=== PATIENT | female | born 1960 | race Caucasian/White ===

== ENCOUNTER 2021-02-23 00:29 | Day surgery (SDC) | payer OTHER, SELFPAY ==
[2021-02-04 14:03] VITALS: BMI 24.5
[2021-02-23] MEDS: LACTATED RINGERS 1,000 ML 150 ML IV CONT (06:31)
[2021-02-23] MEDS: GENTAMICIN 80MG/SOD CHL 50 ML 80 MG/50 ML BAG 100 MG IVPB (06:32)
[2021-02-23 06:34] VITALS: BP 106/61; PULSE 71; RESP 18; TEMP 36.1; O2SAT 98; BMI 24.3
[2021-02-23] MEDS: AMPICILLIN 2 GM/NS 100 ML 2 GM/100 ML BAG IVPB (06:57)
--- NOTE | 2021-02-23 07:07 | PM.HPGS ---
History of Present Illness History of Present Illness Consent: Risks, benefits, and alternatives have been discussed and questions answered. Patient agrees to proceed with procedure. Chief complaint: sigmoid diverticulitis Narrative: Risa Taylor is a 60 year old female who recently had an attack of acute diverticulitis. CT scan showed thickening of the sigmoid and distal descending colon consistent with that diagnosis. She is referred for colonoscopy to verify that the diagnosis and rule out other pathology. She has had a polyp removed for colon several years ago Review of Systems Review of Systems: All systems reviewed & are unremarkable except as noted in HPI and below PMFSH Social History Social History Smoking packs per day: 1 Smoking cigarettes per day: 20.0 Years smoked: 30 Smoking pack-years: 30.00 Smoking status: Former smoker Tobacco type: cigarettes Substance use type: does not use Living arrangements: with family Gender identity (if verbalized by the patient): Female Meds Home Medications and Allergies Home Medications Medication Instructions Recorded Confirmed Type Adult Probiotic 02/04/21 History Co Q-10 02/04/21 History aspirin [Adult Low Dose Aspirin] 81 mg PO DAILY 02/04/21 02/04/21 History azelastine-fluticasone [Dymista] INTRANASAL 02/04/21 History calcium polycarbophil [FiberCon] mg 02/04/21 History carvedilol 3.125 mg PO DAILY 02/04/21 02/23/21 History cetirizine 10 mg PO DAILY 02/04/21 02/04/21 History magnesium carbonate 02/04/21 02/04/21 History montelukast 10 mg PO DAILY 02/04/21 02/04/21 History pantoprazole 40 mg PO DAILY 02/04/21 02/04/21 History simvastatin 10 mg PO DAILY 02/04/21 02/04/21 History tramadol 50 mg PO DAILY 02/04/21 02/04/21 History warfarin 5.5 mg PO DAILY 02/04/21 02/23/21 History Allergies Allergy/AdvReac Type Severity Reaction Status Date / Time iohexol Allergy Hives Verified 02/23/21 06:33 [From contrast - CT, X-RAY] Sulfa (Sulfonamide Allergy Itching Verified 02/23/21 06:33 Antibiotics) Vital Signs Vital Signs - 24 hr 02/23/21 06:34 Temperature 36.1 C L Pulse Rate 71 Respiratory Rate 18 Blood Pressure 106/61 Pulse Oximetry 98 Exam Resp: Auscultation: clear to auscultation bilaterally Cardio: Rate: regular rate Rhythm: regular rhythm GI: GI Palp: Yes Soft to palpation and No Tenderness to palpation present (GI) Assessment and Plan Assessment and plan (1) Diverticulitis: Code(s): K57.92 - Diverticulitis of intestine, part unspecified, without perforation or abscess without bleeding Status: Acute Assessment and Plan: Colonoscopy with possible biopsy or polypectomy or cautery or injection of substances.
--- NOTE | 2021-02-23 07:18 | WPDANESEPPF ---
Anes - Initial Pre Proc Eval Procedure: Operation Date: 02/23/21 07:30 Proposed Procedures p Colonoscopy - Andrew Thompson MD Date/Time: 02/23/21 07:18 Surgeon: Andrew Thompson MD Pre Op Diagnosis: sigmoid diverticulitis Patient Data Age: 60 Gender: F Height: 1.7 m Weight: 70.5 kg Last Vital Signs Temp 97 F L 02/23/21 06:34 Pulse 71 02/23/21 06:34 Resp 18 02/23/21 06:34 BP 106/61 02/23/21 06:34 Pulse Ox 98 02/23/21 06:34 Allergies Allergy/AdvReac Type Severity Reaction Status Date / Time iohexol Allergy Hives Verified 02/23/21 06:33 [From contrast - CT, X-RAY] Sulfa (Sulfonamide Allergy Itching Verified 02/23/21 06:33 Antibiotics) Home Medications Medication Instructions Recorded Confirmed Type Adult Probiotic 02/04/21 History Co Q-10 02/04/21 History aspirin [Adult Low Dose Aspirin] 81 mg PO DAILY 02/04/21 02/04/21 History azelastine-fluticasone [Dymista] INTRANASAL 02/04/21 History calcium polycarbophil [FiberCon] mg 02/04/21 History carvedilol 3.125 mg PO DAILY 02/04/21 02/23/21 History cetirizine 10 mg PO DAILY 02/04/21 02/04/21 History magnesium carbonate 02/04/21 02/04/21 History montelukast 10 mg PO DAILY 02/04/21 02/04/21 History pantoprazole 40 mg PO DAILY 02/04/21 02/04/21 History simvastatin 10 mg PO DAILY 02/04/21 02/04/21 History tramadol 50 mg PO DAILY 02/04/21 02/04/21 History warfarin 5.5 mg PO DAILY 02/04/21 02/23/21 History Patient hx anesthesia problems: none Family hx anesthesia problems: none PMFSH Past Medical History Medical History (Updated 02/23/21 @ 07:18 by Taurus Aden MD) Arthritis GERD (gastroesophageal reflux disease) Hyperlipidemia Social History Social History Smoking packs per day: 1 Smoking cigarettes per day: 20.0 Years smoked: 30 Smoking pack-years: 30.00 Smoking status: Former smoker Tobacco type: cigarettes Substance use type: does not use Living arrangements: with family Gender identity (if verbalized by the patient): Female Anes - Eval Final PreProcedure Day of Procedure 02/23/21 07:18 Patient weight: obese Heart: regular rate and rhythm Lungs: clear to auscultation Airway: Mallampati scale class II Neurological: alert and oriented Last oral intake: >/= 8 hours ASA classification: III Emergent: no Anesthetic plan: proceed Anesthesia type and monitoring: general GIVS and standard monitoring Informed Consent: The patient's anesthetic plan and its attendant risks and benefits were discussed with the patient/family/POA. Questions were solicited and answers provided to the satisfaction of the patient/family/POA.
[2021-02-23 07:41] VITALS: BP 107/47; PULSE 76; RESP 21; O2SAT 95
[2021-02-23 07:51] VITALS: BP 101/56; PULSE 72; RESP 19; O2SAT 94
[2021-02-23 08:01] VITALS: BP 93/65; PULSE 69; RESP 19; O2SAT 96
== END 2021-02-23 08:09 | disposition home or self-care (01) ==
PROVIDERS: PCP Internal Medicine; Visit Provider Internal Medicine Gastroenterology
PROC: 0DJD8ZZ Inspection of Lower Intestinal Tract, Via Natural or Artificial Opening Endoscopic (ICD-10-PCS; CPT 45378; principal; 2021-02-23 07:30)
DX: Z09 Encounter for follow-up examination after completed treatment for conditions other than malignant neoplasm (principal); K57.30 Diverticulosis of large intestine without perforation or abscess without bleeding; K64.8 Other hemorrhoids; Z87.19 Personal history of other diseases of the digestive system; I10 Essential (primary) hypertension; K21.9 Gastro-esophageal reflux disease without esophagitis; Z79.01 Long term (current) use of anticoagulants; Z87.891 Personal history of nicotine dependence
CPT/HCPCS: 45378; J0290; J1580; J2704; J7120

== ENCOUNTER 2021-03-03 10:10 | Outpatient (CLI) | payer OTHER, SELFPAY ==
[2021-03-03 10:41] LABS: INR 1.7; Prothrombin Time 17.7 Seconds (9.50-12.10)
== END 2021-03-03 10:11 | disposition home or self-care (01) ==
LOC: CHSLAB 10:13
PROVIDERS: PCP Internal Medicine; Visit Provider Internal Medicine
DX: Z79.01 Long term (current) use of anticoagulants (principal)
CPT/HCPCS: 36415; 85610

== ENCOUNTER 2021-03-16 08:19 | Outpatient (RCR) | payer OTHER, SELFPAY ==
[2021-01-07 10:38] LABS: INR 1.8; Prothrombin Time 18.6 Seconds (9.50-12.10)
[2021-01-24 09:19] LABS: INR 2.2; Prothrombin Time 23.1 Seconds (9.50-12.10)
[2021-03-16 08:50] LABS: INR 2.5; Prothrombin Time 25.6 Seconds (9.50-12.10)
== END 2021-04-07 23:59 | disposition home or self-care (01) ==
LOC: CHSLAB 08:19
PROVIDERS: PCP Internal Medicine; Visit Provider Internal Medicine
DX: Z79.01 Long term (current) use of anticoagulants (principal)
CPT/HCPCS: 36415; 85610

== ENCOUNTER 2021-07-01 08:48 | Outpatient (RCR) | payer OTHER, SELFPAY ==
[2021-04-15 10:03] LABS: INR 2.6; Prothrombin Time 26.8 Seconds (9.50-12.10)
[2021-05-16 08:58] LABS: Prothrombin Time 20.3 Seconds (9.50-12.10)
[2021-05-31 08:54] LABS: INR 2.6; Prothrombin Time 26.1 Seconds (9.50-12.10)
[2021-07-01 09:10] LABS: INR 3.3
== END 2021-07-14 23:59 | disposition home or self-care (01) ==
LOC: CHSLAB 08:48
PROVIDERS: PCP Internal Medicine; Visit Provider Internal Medicine
DX: Z79.01 Long term (current) use of anticoagulants (principal)
CPT/HCPCS: 36415; 85610

== ENCOUNTER 2021-09-02 08:41 | Outpatient (CLI) | payer OTHER, SELFPAY ==
[2021-09-02 09:03] LABS: Add Urine Microscopic? YES; Appearance Urine Clear (Clear); Basophils Absolute Auto 0.06 K/mm3 (0.00-0.10); Basophils Percent Auto 0.8 % (0.0-1.0); Bilirubin Urine Negative (Negative); Blood Urine Negative (Negative); Color Urine Yellow (Yellow); Eosinophils Absolute Auto 0.24 K/mm3 (0.02-0.50); Eosinophils Percent Auto 3.1 % (1.0-6.0); Glucose Urine UA Negative (Negative); Hematocrit 39.7 % (35.0-49.0); Hemoglobin 12.9 g/dL (12.0-15.0); Immature Granulocyte Absolute 0.07 K/mm3 (0.00-0.00); Immature Granulocyte Percent A 0.9 % (0.0-0.0); Ketones Urine Negative (Negative); Leukocyte Esterase Ur Trace (Negative); Lymphocytes Absolute Auto 2.07 K/mm3 (1.10-4.50); Lymphocytes Percent Auto 26.7 % (18.0-42.0); Mean Corpuscular HGB Conc 32.5 g/dL (32.0-36.0); Mean Corpuscular Hemoglobin 30.1 pg (27.0-31.0); Mean Corpuscular Volume 92.5 fL (78.0-102.0); Mean Platelet Volume 10.3 fl (9.2-11.8); Monocytes Absolute Auto 0.63 K/mm3 (0.10-0.90); Monocytes Percent Auto 8.1 % (2.0-11.0); Neutrophils Absolute Auto 4.7 K/mm3 (1.7-7.2); Neutrophils Percent Auto 60.4 % (50.0-70.0); Nitrate Urine Negative (Negative); Platelet Count Result 335 K/mm3 (150-420); Protein Urine Negative (Negative); Red Blood Count 4.29 M/mm3 (4.20-5.40); Red Cell Distribution Width 14.8 % (11.6-14.4); Specific Grav Ur 1.025 (1.010-1.020); Urobilinogen Urine 0.2 mg/dL (0.2-1.0); White Blood Count 7.7 K/mm3 (4.8-10.8); pH Urine 5.5 (5.0-8.0)
[2021-09-02 09:16] LABS: Prothrombin Time 20.3 Seconds (9.50-12.10)
[2021-09-02 09:22] LABS: Bacteria Urine Trace /hpf; RBC Urine None seen /hpf (0-2); Squamous Epithelial Cell Urine Moderate /hpf (Few); WBC Urine 0-3 /hpf (0-3)
[2021-09-02 09:50] LABS: Alanine Aminotransferase 18 U/L (14-59); Albumin Level 3.9 g/dL (3.4-5.0); Alkaline Phosphatase 80 U/L (46-116); Anion Gap 9 mmol/L (8-16); Aspartate Amino Transferase 13 U/L (15-37); Bilirubin,Total 0.5 mg/dL (0.00-1.00); Blood Urea Nitrogen 14 mg/dL (7-18); Calcium 9.1 mg/dL (8.5-10.1); Carbon Dioxide 28 mmol/L (21-32); Chloride 102 mmol/L (98-108); Cholesterol 190 mg/dL (0-200); Estimated Glomerular Filt Rate > 60; Glucose 107 mg/dL (70-99); HDL Direct 46 mg/dL (40-60); LDL Cholesterol Calculated 84 mg/dL (<130); Osmolality Calculated 288 mOsm/kg (285-295); Potassium 4.7 mmol/L (3.5-5.1); Sodium 139 mmol/L (136-145); Total Protein 7.7 g/dL (6.4-8.2); Triglycerides 302 mg/dL (0-150)
[2021-09-02 15:15] LABS: Hemoglobin A1C 5.8 % (<5.7)
== END 2021-09-02 08:42 | disposition home or self-care (01) ==
LOC: CHSLAB 08:43
PROVIDERS: PCP Internal Medicine; Visit Provider Internal Medicine
DX: E78.5 Hyperlipidemia, unspecified (principal); Z79.01 Long term (current) use of anticoagulants; Z95.2 Presence of prosthetic heart valve; R73.9 Hyperglycemia, unspecified
CPT/HCPCS: 36415; 80053; 80061; 81001; 83036; 85025; 85610

== ENCOUNTER 2021-10-10 08:45 | Outpatient (RCR) | payer OTHER, SELFPAY ==
[2021-08-01 10:04] LABS: INR 2.9; Prothrombin Time 29.3 Seconds (9.50-12.10)
[2021-10-10 09:35] LABS: INR 2.2; Prothrombin Time 22.6 Seconds (9.50-12.10)
== END 2021-10-30 23:59 | disposition home or self-care (01) ==
LOC: CHSLAB 08:45
PROVIDERS: PCP Internal Medicine; Visit Provider Internal Medicine
DX: Z79.01 Long term (current) use of anticoagulants (principal)
CPT/HCPCS: 36415; 85610

== ENCOUNTER 2022-01-06 08:27 | Outpatient (RCR) | payer OTHER, SELFPAY ==
[2021-11-07 09:51] LABS: INR 1.9; Prothrombin Time 19.3 Seconds (9.50-12.10)
[2022-01-06 09:07] LABS: INR 2.5; Prothrombin Time 25.9 Seconds (9.50-12.10)
== END 2022-02-05 23:59 | disposition home or self-care (01) ==
LOC: CHSLAB 08:27
PROVIDERS: PCP Internal Medicine; Visit Provider Internal Medicine
DX: Z79.01 Long term (current) use of anticoagulants (principal)
CPT/HCPCS: 36415; 85610

== ENCOUNTER 2022-02-01 16:54 | Outpatient (CLI) | payer OTHER, SELFPAY ==
--- NOTE | ~2022-02-01 | XR_ITS ---
EXAM: XR lumbar spine 2-3V DATE: 02/01/2022 17:46 HISTORY: posterior RT hip/low back pain . COMPARISON: None available. FINDINGS: 5 nonrib-bearing lumbar-type vertebral bodies. Mild scoliosis. Pedicles intact. Normal bonifacio tebral body alignment. Vertebral body heights preserved. Mild concave osteoporotic type endplate defo rmities. Multilevel disc space narrowing and marginal osteophytosis, severe at L2-3 and L3-4. Mild mu ltilevel facet sclerosis. No fracture or dislocation. IMPRESSION: Severe degenerative disc disease at L2-3 and L3-4. Reviewed, dictated and finalized at location K.
--- NOTE | ~2022-02-01 | XR_ITS ---
EXAM: XR hip RT min 2V DATE: 02/01/2022 17:46 HISTORY: posterior RT hip/low back pain x 1 wk . COMPARISON: None available. FINDINGS: Decreased mineralization. No fracture or dislocation. No lytic or blastic lesion. Mild rig ht hip superior joint space narrowing. No erosion or periosteal change. Punctate calcific densities o bonifacio the central pelvis, may represent involuted fibroid calcifications versus artifact. IMPRESSION: Mild right hip osteoarthritis. Reviewed, dictated and finalized at location K.
== END 2022-02-01 16:55 | disposition home or self-care (01) ==
LOC: CHSIMG 16:56
PROVIDERS: PCP Internal Medicine; Visit Provider Internal Medicine
DX: M25.551 Pain in right hip (principal)
CPT/HCPCS: 72100; 73502

== ENCOUNTER 2022-02-08 09:40 | Outpatient (CLI) | payer OTHER, SELFPAY ==
[2022-02-08 10:03] LABS: Appearance Urine Clear (Clear); Basophils Absolute Auto 0.05 K/mm3 (0.00-0.10); Basophils Percent Auto 0.6 % (0.0-1.0); Bilirubin Urine Negative (Negative); Color Urine Light Yellow (Yellow); Eosinophils Absolute Auto 0.18 K/mm3 (0.02-0.50); Eosinophils Percent Auto 2.1 % (1.0-6.0); Glucose Urine UA Negative (Negative); Hematocrit 41.2 % (35.0-49.0); Hemoglobin 13.5 g/dL (12.0-15.0); Immature Granulocyte Absolute 0.18 K/mm3 (0.00-0.00); Immature Granulocyte Percent A 2.1 % (0.0-0.0); Ketones Urine Negative (Negative); Leukocyte Esterase Ur Negative (Negative); Lymphocytes Absolute Auto 3.15 K/mm3 (1.10-4.50); Mean Corpuscular HGB Conc 32.8 g/dL (32.0-36.0); Mean Corpuscular Hemoglobin 29.5 pg (27.0-31.0); Monocytes Absolute Auto 0.77 K/mm3 (0.10-0.90); Monocytes Percent Auto 8.8 % (2.0-11.0); Neutrophils Absolute Auto 4.4 K/mm3 (1.7-7.2); Neutrophils Percent Auto 50.4 % (50.0-70.0); Nitrate Urine Negative (Negative); Platelet Count Result 279 K/mm3 (150-420); Protein Urine Negative (Negative); Red Blood Count 4.58 M/mm3 (4.20-5.40); Red Cell Distribution Width 14.6 % (11.6-14.4); Specific Grav Ur <= 1.005 (1.010-1.020); Urobilinogen Urine 0.2 mg/dL (0.2-1.0); White Blood Count 8.8 K/mm3 (4.8-10.8)
[2022-02-08 10:07] LABS: Add Urine Microscopic? YES; Bacteria Urine Trace /hpf; Blood Urine Trace-Intact (Negative); RBC Urine 0-2 /hpf (0-2); Renal Epithelial Cells Urine Few /hpf; Squamous Epithelial Cell Urine Few /hpf (Few); WBC Urine None seen /hpf (0-3)
[2022-02-08 10:12] LABS: Hemoglobin A1C 5.9 % (<5.7)
[2022-02-08 10:18] LABS: INR 2.5; Prothrombin Time 25.8 Seconds (9.50-12.10)
[2022-02-08 10:42] LABS: Alanine Aminotransferase 24 U/L (14-59); Albumin Level 3.7 g/dL (3.4-5.0); Alkaline Phosphatase 89 U/L (46-116); Anion Gap 7 mmol/L (8-16); Aspartate Amino Transferase 13 U/L (15-37); Bilirubin,Total 0.5 mg/dL (0.00-1.00); Blood Urea Nitrogen 19 mg/dL (7-18); Calcium 8.7 mg/dL (8.5-10.1); Carbon Dioxide 29 mmol/L (21-32); Chloride 102 mmol/L (98-108); Cholesterol 228 mg/dL (0-200); Estimated Glomerular Filt Rate 56; Glucose 87 mg/dL (70-99); HDL Direct 53 mg/dL (40-60); LDL Cholesterol Calculated 94 mg/dL (<130); Osmolality Calculated 287 mOsm/kg (285-295); Potassium 4.2 mmol/L (3.5-5.1); Sodium 138 mmol/L (136-145); Thyroid Stimulating Hormone 4.74 uIU/mL (0.36-3.74); Total Protein 7.8 g/dL (6.4-8.2); Triglycerides 406 mg/dL (0-150)
[2022-02-08 10:50] LABS: LDL Cholesterol Direct 101 mg/dL (0-130)
== END 2022-02-08 09:41 | disposition home or self-care (01) ==
LOC: CHSLAB 09:49
PROVIDERS: PCP Internal Medicine; Visit Provider Internal Medicine
DX: E78.5 Hyperlipidemia, unspecified (principal); Z79.01 Long term (current) use of anticoagulants; R73.09 Other abnormal glucose
CPT/HCPCS: 36415; 80053; 80061; 81001; 83036; 83721; 84443; 85025; 85610

== ENCOUNTER 2022-06-02 08:34 | Outpatient (RCR) | payer OTHER, SELFPAY ==
[2022-03-10 08:37] LABS: INR 1.7; Prothrombin Time 18.3 Seconds (9.50-12.10)
[2022-03-24 08:27] LABS: INR 1.4; Prothrombin Time 14.8 Seconds (9.50-12.10)
[2022-03-28 08:19] LABS: INR 1.6
[2022-04-05 11:55] LABS: INR 2.3; Prothrombin Time 23.6 Seconds (9.50-12.10)
[2022-04-12 10:02] LABS: INR 2.8; Prothrombin Time 27.8 Seconds (9.50-12.10)
[2022-04-21 09:23] LABS: INR 2.9; Prothrombin Time 29.2 Seconds (9.50-12.10)
[2022-05-05 08:21] LABS: INR 2.9; Prothrombin Time 29.1 Seconds (9.50-12.10)
[2022-06-02 08:57] LABS: INR 3.8
== END 2022-06-08 23:59 | disposition home or self-care (01) ==
LOC: CHSLAB 08:34
PROVIDERS: PCP Internal Medicine; Visit Provider Internal Medicine
DX: Z79.01 Long term (current) use of anticoagulants (principal)
CPT/HCPCS: 36415; 85610

== ENCOUNTER 2022-08-15 08:15 | Outpatient (RCR) | payer OTHER, SELFPAY ==
[2022-06-16 09:43] LABS: INR 2.1; Prothrombin Time 21.4 Seconds (9.50-12.10)
[2022-06-30 08:39] LABS: INR 2.5; Prothrombin Time 25.6 Seconds (9.50-12.10)
[2022-07-31 08:56] LABS: INR 8.9
[2022-08-07 08:15] LABS: INR 4.2; Prothrombin Time 40.8 Seconds (9.50-12.10)
[2022-08-15 08:39] LABS: INR 3.3; Prothrombin Time 33.1 Seconds (9.50-12.10)
== END 2022-09-14 23:59 | disposition home or self-care (01) ==
LOC: CHSLAB 08:15
PROVIDERS: PCP Internal Medicine; Visit Provider Internal Medicine
DX: Z51.11 Encounter for antineoplastic chemotherapy (principal); Z79.01 Long term (current) use of anticoagulants
CPT/HCPCS: 36415; 85610

== ENCOUNTER 2022-10-16 08:11 | Outpatient (CLI) | payer OTHER, SELFPAY ==
[2022-10-16 08:23] LABS: Basophils Absolute Auto 0.03 K/mm3 (0.00-0.10); Basophils Percent Auto 0.4 % (0.0-1.0); Eosinophils Absolute Auto 0.27 K/mm3 (0.02-0.50); Eosinophils Percent Auto 3.7 % (1.0-6.0); Hemoglobin 12.3 g/dL (12.0-15.0); Immature Granulocyte Absolute 0.03 K/mm3 (0.00-0.00); Immature Granulocyte Percent A 0.4 % (0.0-0.0); Lymphocytes Percent Auto 23.1 % (18.0-42.0); Mean Corpuscular HGB Conc 33.2 g/dL (32.0-36.0); Mean Corpuscular Hemoglobin 29.3 pg (27.0-31.0); Mean Corpuscular Volume 88.1 fL (78.0-102.0); Mean Platelet Volume 10.3 fl (9.2-11.8); Monocytes Absolute Auto 0.61 K/mm3 (0.10-0.90); Monocytes Percent Auto 8.3 % (2.0-11.0); Neutrophils Absolute Auto 4.7 K/mm3 (1.7-7.2); Neutrophils Percent Auto 64.1 % (50.0-70.0); Platelet Count Result 261 K/mm3 (150-420); Red Cell Distribution Width 13.9 % (11.6-14.4); White Blood Count 7.4 K/mm3 (4.8-10.8)
[2022-10-16 08:49] LABS: INR 2.1; Prothrombin Time 21.3 Seconds (9.50-12.10)
[2022-10-16 08:54] LABS: Add Urine Microscopic? YES; Appearance Urine Clear (Clear); Bilirubin Urine Negative (Negative); Blood Urine Trace-Intact (Negative); Color Urine Yellow (Yellow); Glucose Urine UA Negative (Negative); Ketones Urine Negative (Negative); Leukocyte Esterase Ur Negative (Negative); Nitrate Urine Negative (Negative); Protein Urine Negative (Negative); Urobilinogen Urine 0.2 mg/dL (0.2-1.0)
[2022-10-16 08:58] LABS: Bacteria Urine 1+ /hpf; RBC Urine 0-2 /hpf (0-2); Squamous Epithelial Cell Urine Moderate /hpf (Few); WBC Urine None seen /hpf (0-3)
[2022-10-16 09:03] LABS: Alanine Aminotransferase 19 U/L (14-59); Albumin Level 3.6 g/dL (3.4-5.0); Alkaline Phosphatase 82 U/L (46-116); Anion Gap 10 mmol/L (8-16); Aspartate Amino Transferase 18 U/L (15-37); Bilirubin,Total 0.4 mg/dL (0.00-1.00); Blood Urea Nitrogen 12 mg/dL (7-18); Calcium 9.2 mg/dL (8.5-10.1); Carbon Dioxide 28 mmol/L (21-32); Chloride 103 mmol/L (98-108); Cholesterol 186 mg/dL (0-200); Estimated Glomerular Filt Rate > 60; Glucose 115 mg/dL (70-99); HDL Direct 38 mg/dL (40-60); LDL Cholesterol Calculated 80 mg/dL (<130); Osmolality Calculated 292 mOsm/kg (285-295); Potassium 4.4 mmol/L (3.5-5.1); Sodium 141 mmol/L (136-145); Total Protein 7.3 g/dL (6.4-8.2); Triglycerides 342 mg/dL (0-150)
[2022-10-16 13:32] LABS: Hemoglobin A1C 5.9 % (<5.7)
== END 2022-10-16 08:12 | disposition home or self-care (01) ==
LOC: CHSLAB 08:14
PROVIDERS: PCP Internal Medicine; Visit Provider Internal Medicine
DX: E78.5 Hyperlipidemia, unspecified (principal); Z79.01 Long term (current) use of anticoagulants
CPT/HCPCS: 36415; 80053; 80061; 81001; 83036; 85025; 85610

== ENCOUNTER 2022-12-13 07:44 | Outpatient (RCR) | payer OTHER, SELFPAY ==
[2022-09-15 10:23] LABS: INR 3.4
[2022-11-13 08:46] LABS: INR 2.2; Prothrombin Time 22.8 Seconds (9.50-12.10)
[2022-12-13 08:08] LABS: Prothrombin Time 30.5 Seconds (9.50-12.10)
== END 2022-12-14 23:59 | disposition home or self-care (01) ==
LOC: CHSLAB 07:44
PROVIDERS: PCP Internal Medicine; Visit Provider Internal Medicine
DX: Z51.81 Encounter for therapeutic drug level monitoring (principal); Z79.01 Long term (current) use of anticoagulants
CPT/HCPCS: 36415; 85610

== ENCOUNTER 2023-04-12 08:37 | Outpatient (RCR) | payer OTHER, SELFPAY ==
[2023-01-12 11:10] LABS: INR 2.6; Prothrombin Time 26.9 Seconds (9.50-12.10)
[2023-01-23 08:39] LABS: INR 3.1; Prothrombin Time 31.3 Seconds (9.50-12.10)
[2023-02-23 08:18] LABS: INR 2.3; Prothrombin Time 23.4 Seconds (9.50-12.10)
[2023-03-28 11:06] LABS: INR 2.1; Prothrombin Time 21.9 Seconds (9.50-12.10)
[2023-04-12 09:20] LABS: INR 4.1; Prothrombin Time 40.7 Seconds (9.50-12.10)
== END 2023-04-12 23:59 | disposition home or self-care (01) ==
LOC: CHSLAB 08:37
PROVIDERS: PCP Internal Medicine; Visit Provider Internal Medicine
DX: Z51.81 Encounter for therapeutic drug level monitoring (principal); Z79.01 Long term (current) use of anticoagulants
CPT/HCPCS: 36415; 85610

== ENCOUNTER 2023-06-11 08:31 | Outpatient (CLI) | payer OTHER, SELFPAY ==
[2023-06-11 08:46] LABS: Appearance Urine Clear (Clear); Basophils Absolute Auto 0.06 K/mm3 (0.00-0.10); Basophils Percent Auto 0.8 % (0.0-1.0); Bilirubin Urine Negative (Negative); Blood Urine Trace-Intact (Negative); Color Urine Yellow (Yellow); Eosinophils Absolute Auto 0.28 K/mm3 (0.02-0.50); Eosinophils Percent Auto 3.9 % (1.0-6.0); Glucose Urine UA Negative (Negative); Hemoglobin 12.6 g/dL (12.0-15.0); Immature Granulocyte Absolute 0.04 K/mm3 (0.00-0.00); Immature Granulocyte Percent A 0.6 % (0.0-0.0); Ketones Urine Negative (Negative); Leukocyte Esterase Ur Negative LEU/UL (Negative); Lymphocytes Absolute Auto 1.93 K/mm3 (1.10-4.50); Lymphocytes Percent Auto 26.8 % (18.0-42.0); Mean Corpuscular HGB Conc 32.3 g/dL (32.0-36.0); Mean Corpuscular Volume 89.7 fL (78.0-102.0); Monocytes Percent Auto 8.3 % (2.0-11.0); Neutrophils Absolute Auto 4.3 K/mm3 (1.7-7.2); Neutrophils Percent Auto 59.6 % (50.0-70.0); Nitrate Urine Negative (Negative); Platelet Count Result 236 K/mm3 (150-420); Protein Urine Negative (Negative); Red Blood Count 4.35 M/mm3 (4.20-5.40); Red Cell Distribution Width 14.7 % (11.6-14.4); Urobilinogen Urine 0.2 mg/dL (0.2-1.0); White Blood Count 7.2 K/mm3 (4.8-10.8); pH Urine 6.5 (5.0-8.0)
[2023-06-11 08:59] LABS: Add Urine Microscopic? YES; Bacteria Urine 3+ /hpf; RBC Urine 0-2 /hpf (0-2); Squamous Epithelial Cell Urine Few /hpf (Few); WBC Urine 0-3 /hpf (0-3)
[2023-06-11 09:03] LABS: INR 2.7; Prothrombin Time 27.9 Seconds (9.50-12.10)
[2023-06-11 10:01] LABS: Alanine Aminotransferase 22 U/L (14-59); Albumin Level 3.6 g/dL (3.4-5.0); Alkaline Phosphatase 84 U/L (46-116); Anion Gap 8 mmol/L (8-16); Aspartate Amino Transferase 15 U/L (15-37); Bilirubin,Total 0.6 mg/dL (0.00-1.00); Blood Urea Nitrogen 11 mg/dL (7-18); Carbon Dioxide 28 mmol/L (21-32); Chloride 104 mmol/L (98-108); Cholesterol 176 mg/dL (0-200); Estimated Glomerular Filt Rate > 60; Free T4 Free Thyroxine 0.83 ng/dL (0.76-1.46); Glucose 98 mg/dL (70-99); HDL Direct 43 mg/dL (40-60); LDL Cholesterol Calculated 77 mg/dL (<130); Osmolality Calculated 289 mOsm/kg (285-295); Potassium 4.6 mmol/L (3.5-5.1); Sodium 140 mmol/L (136-145); Thyroid Stimulating Hormone 4.22 uIU/mL (0.36-3.74); Total Protein 7.4 g/dL (6.4-8.2); Triglycerides 282 mg/dL (0-150)
== END 2023-06-11 08:32 | disposition home or self-care (01) ==
LOC: CHSLAB 08:33
PROVIDERS: PCP Internal Medicine; Visit Provider Nurse Practitioner Family
DX: Z00.00 Encounter for general adult medical examination without abnormal findings (principal); E78.5 Hyperlipidemia, unspecified; R31.9 Hematuria, unspecified; G47.9 Sleep disorder, unspecified; R63.5 Abnormal weight gain
CPT/HCPCS: 36415; 80053; 80061; 81001; 84439; 84443; 85025; 85610

== ENCOUNTER 2023-07-11 08:22 | Outpatient (RCR) | payer OTHER, SELFPAY ==
[2023-04-19 08:58] LABS: INR 4.3; Prothrombin Time 42.5 Seconds (9.50-12.10)
[2023-04-26 14:22] LABS: INR 3.2; Prothrombin Time 32.2 Seconds (9.50-12.10)
[2023-05-10 09:10] LABS: Prothrombin Time 30.3 Seconds (9.50-12.10)
[2023-07-11 09:16] LABS: INR 2.6; Prothrombin Time 26.8 Seconds (9.50-12.10)
== END 2023-07-18 23:59 | disposition home or self-care (01) ==
LOC: CHSLAB 08:22
PROVIDERS: PCP Internal Medicine; Visit Provider Internal Medicine
DX: Z51.81 Encounter for therapeutic drug level monitoring (principal); Z79.01 Long term (current) use of anticoagulants
CPT/HCPCS: 36415; 85610

== ENCOUNTER 2023-10-12 08:54 | Outpatient (RCR) | payer OTHER, SELFPAY ==
[2023-08-10 08:34] LABS: INR 3.2
[2023-09-12 09:01] LABS: INR 2.4; Prothrombin Time 25.1 Seconds (9.50-12.10)
[2023-10-12 09:26] LABS: INR 3.4; Prothrombin Time 33.7 Seconds (9.50-12.10)
== END 2023-11-08 23:59 | disposition home or self-care (01) ==
LOC: CHSLAB 08:54
PROVIDERS: PCP Internal Medicine; Visit Provider Internal Medicine
DX: Z51.81 Encounter for therapeutic drug level monitoring (principal); Z79.01 Long term (current) use of anticoagulants
CPT/HCPCS: 36415; 85610

== ENCOUNTER 2024-01-24 08:41 | Outpatient (RCR) | payer MEDICARE, OTHER, SELFPAY ==
[2023-11-09 09:56] LABS: INR 2.9
[2023-12-11 08:47] LABS: INR 2.4; Prothrombin Time 24.6 Seconds (9.50-12.1)
[2024-01-10 08:44] LABS: INR 1.8; Prothrombin Time 19.2 Seconds (9.50-12.1)
[2024-01-24 09:07] LABS: Prothrombin Time 20.4 Seconds (9.50-12.1)
== END 2024-02-07 23:59 | disposition home or self-care (01) ==
LOC: CHSLAB 08:41
PROVIDERS: PCP Internal Medicine; Visit Provider Internal Medicine
DX: Z51.81 Encounter for therapeutic drug level monitoring (principal); Z79.01 Long term (current) use of anticoagulants
CPT/HCPCS: 36415; 85610

== ENCOUNTER 2024-02-22 08:16 | Outpatient (CLI) | payer MEDICARE, SELFPAY ==
[2024-02-22 08:46] LABS: INR 2.1
== END 2024-02-22 08:17 | disposition home or self-care (01) ==
LOC: CHSLAB 08:19
PROVIDERS: PCP Internal Medicine; Visit Provider Internal Medicine
DX: Z79.01 Long term (current) use of anticoagulants (principal)
CPT/HCPCS: 36415; 85610

== ENCOUNTER 2024-04-07 07:56 | Outpatient (CLI) | payer MEDICARE, OTHER, SELFPAY ==
[2024-04-07 08:15] LABS: Add Urine Microscopic? NO; Appearance Urine Clear (Clear); Bilirubin Urine Negative (Negative); Blood Urine Trace-intact (Negative); Color Urine Yellow (Yellow); Glucose Urine UA Negative (Negative); Ketones Urine Negative (Negative); Leukocyte Esterase Ur Negative (Negative); Nitrate Urine Negative (Negative); Protein Urine Negative (Negative); Specific Grav Ur 1.015 (1.010-1.020); Urobilinogen Urine 0.2 mg/dL (0.2-1.0)
[2024-04-07 08:23] LABS: INR 2.9; Prothrombin Time 29.7 Seconds (9.50-12.1)
== END 2024-04-07 07:57 | disposition home or self-care (01) ==
LOC: CHSLAB 07:58
PROVIDERS: PCP Internal Medicine; Visit Provider Nurse Practitioner Family
DX: N39.0 Urinary tract infection, site not specified (principal); R31.9 Hematuria, unspecified
CPT/HCPCS: 36415; 81003; 85610; 87086; 87088; 88112

== ENCOUNTER 2024-05-05 10:06 | Outpatient (CLI) | payer MEDICARE, SELFPAY ==
[2024-05-05 10:27] LABS: Add Urine Microscopic? NO; Appearance Urine Clear (Clear); Bilirubin Urine Negative (Negative); Blood Urine Trace-intact (Negative); Color Urine Light Yellow (Yellow); Glucose Urine UA Negative (Negative); Ketones Urine Negative (Negative); Leukocyte Esterase Ur Negative (Negative); Nitrate Urine Negative (Negative); Protein Urine Negative (Negative); Urobilinogen Urine 0.2 mg/dL (0.2-1.0); pH Urine 5.5 (5.0-8.0)
== END 2024-05-05 10:07 | disposition home or self-care (01) ==
LOC: CHSLAB 10:07
PROVIDERS: PCP Internal Medicine; Visit Provider Internal Medicine
DX: R31.9 Hematuria, unspecified (principal)
CPT/HCPCS: 81003

== ENCOUNTER 2024-05-28 14:58 | Outpatient (CLI) | payer MEDICARE, OTHER, SELFPAY ==
--- NOTE | ~2024-05-28 | XR_ITS ---
Right elbow Technique: AP, oblique, and lateral views were obtained. Clinical History: Pain Findings: No acute fracture or dislocation is seen. Osseous alignment is anatomic. Small osteophyte v ersus small chronic fracture fragment of the coronoid process of the ulna noted. Probable small elbow joint effusion. Impression: Small ossified versus small probable chronic fracture fragment at the coronoid process. Small elbow joint effusion. Reviewed, dictated and finalized at location . Impression: Small ossified versus small probable chronic fracture fragment at the coronoid process. Small elbow joint effusion.
== END 2024-05-28 14:59 | disposition home or self-care (01) ==
LOC: CHSIMG 15:01
PROVIDERS: PCP Internal Medicine; Visit Provider Internal Medicine
DX: M25.521 Pain in right elbow (principal); M25.421 Effusion, right elbow
CPT/HCPCS: 73080

== ENCOUNTER 2024-05-30 08:05 | Outpatient (RCR) | payer MEDICARE, SELFPAY ==
[2024-03-07 14:03] LABS: Prothrombin Time 10.7 Seconds (9.50-12.1)
[2024-03-11 07:59] LABS: INR 1.2; Prothrombin Time 12.9 Seconds (9.50-12.1)
[2024-03-13 08:07] LABS: INR 1.4; Prothrombin Time 15.4 Seconds (9.50-12.1)
[2024-03-17 07:53] LABS: INR 1.8; Prothrombin Time 19.3 Seconds (9.50-12.1)
[2024-03-20 08:53] LABS: INR 1.9; Prothrombin Time 19.6 Seconds (9.50-12.1)
[2024-03-24 08:57] LABS: INR 2.6; Prothrombin Time 26.6 Seconds (9.50-12.1)
[2024-03-31 08:03] LABS: INR 3.7; Prothrombin Time 37.1 Seconds (9.50-12.1)
[2024-04-23 08:17] LABS: INR 3.2; Prothrombin Time 31.9 Seconds (9.50-12.1)
[2024-05-23 08:48] LABS: Prothrombin Time 39.6 Seconds (9.50-12.1)
[2024-05-30 08:36] LABS: INR 2.6; Prothrombin Time 26.2 Seconds (9.50-12.1)
== END 2024-06-05 23:59 | disposition home or self-care (01) ==
LOC: CHSLAB 08:05
PROVIDERS: PCP Internal Medicine; Visit Provider Internal Medicine
DX: Z51.81 Encounter for therapeutic drug level monitoring (principal); Z79.01 Long term (current) use of anticoagulants
CPT/HCPCS: 36415; 85610

== ENCOUNTER 2024-06-18 11:06 | Outpatient (CLI) | payer MEDICARE, SELFPAY ==
[2024-06-18 11:30] LABS: Basophils Absolute Auto 0.04 K/mm3 (0.00-0.10); Basophils Percent Auto 0.4 % (0.0-1.0); Eosinophils Absolute Auto 0.32 K/mm3 (0.02-0.50); Eosinophils Percent Auto 3.2 % (1.0-6.0); Hematocrit 35.9 % (35.0-42.0); Hemoglobin 11.9 g/dL (11.7-13.8); Immature Granulocyte Absolute 0.07 K/mm3 (0.00-0.00); Immature Granulocyte Percent A 0.7 % (0.0-0.0); Lymphocytes Absolute Auto 2.03 K/mm3 (1.10-4.50); Lymphocytes Percent Auto 20.4 % (18.0-42.0); Mean Corpuscular HGB Conc 33.1 g/dL (32-36); Mean Corpuscular Hemoglobin 28.6 pg (27.0-31.0); Mean Corpuscular Volume 86.3 fL (78.0-102.0); Mean Platelet Volume 10.7 fl (9.2-11.8); Monocytes Absolute Auto 0.82 K/mm3 (0.10-0.90); Monocytes Percent Auto 8.2 % (2.0-11.0); Neutrophils Absolute Auto 6.66 K/mm3 (1.70-7.20); Neutrophils Percent Auto 67.1 % (50.0-70.0); Platelet Count Result 215 K/mm3 (150-420); Red Blood Count 4.16 M/mm3 (4.20-5.40); Red Cell Distribution Width 15.5 % (11.6-14.4); White Blood Count 9.9 K/mm3 (4.8-10.8)
[2024-06-18 11:52] LABS: INR 4.4; Prothrombin Time 43.1 Seconds (9.50-12.1)
[2024-06-18 12:33] LABS: Alanine Aminotransferase 20 U/L (14-59); Albumin Level 3.3 g/dL (3.4-5.0); Alkaline Phosphatase 119 U/L (46-116); Anion Gap 10 mmol/L (4-12); Aspartate Amino Transferase 12 U/L (15-37); Bilirubin,Total 0.5 mg/dL (0.00-1.00); Blood Urea Nitrogen 10 mg/dL (7-18); CRP 1.6 mg/dL (0.0-0.9); Calcium 8.8 mg/dL (8.5-10.1); Carbon Dioxide 25 mmol/L (21-32); Chloride 107 mmol/L (98-108); Estimated Glomerular Filt Rate > 60; Glucose 127 mg/dL (70-99); Osmolality Calculated 295 mOsm/kg (285-295); Potassium 4.1 mmol/L (3.5-5.1); Sodium 142 mmol/L (136-145); Total Protein 7.1 g/dL (6.4-8.2)
== END 2024-06-18 11:07 | disposition home or self-care (01) ==
LOC: CHSLAB 11:09
PROVIDERS: PCP Internal Medicine; Visit Provider Internal Medicine
DX: R05.9 Cough, unspecified (principal); R50.9 Fever, unspecified; Z79.01 Long term (current) use of anticoagulants
CPT/HCPCS: 36415; 80053; 85025; 85610; 86140

== ENCOUNTER 2024-09-09 08:15 | Outpatient (RCR) | payer MEDICARE, SELFPAY ==
[2024-07-08 08:46] LABS: INR 4.1; Prothrombin Time 39.1 Seconds (9.50-12.1)
[2024-07-24 08:42] LABS: INR 3.5
[2024-08-07 08:53] LABS: Prothrombin Time 29.9 Seconds (9.50-12.1)
[2024-09-09 08:37] LABS: INR 2.5; Prothrombin Time 25.6 Seconds (9.50-12.1)
== END 2024-10-06 23:59 | disposition home or self-care (01) ==
LOC: CHSLAB 08:15
PROVIDERS: PCP Internal Medicine; Visit Provider Internal Medicine
DX: Z51.81 Encounter for therapeutic drug level monitoring (principal); Z79.01 Long term (current) use of anticoagulants
CPT/HCPCS: 36415; 85610

== ENCOUNTER 2025-01-06 08:10 | Outpatient (RCR) | payer MEDICARE, SELFPAY ==
[2024-10-10 08:52] LABS: INR 1.6; Prothrombin Time 16.8 Seconds (9.50-12.1)
[2024-10-24 08:27] LABS: INR 1.8
[2024-11-04 15:37] LABS: INR 1.6; Prothrombin Time 17.3 Seconds (9.50-12.1)
[2024-11-18 08:33] LABS: INR 1.9; Prothrombin Time 20.2 Seconds (9.50-12.1)
[2024-12-02 08:45] LABS: INR 1.7; Prothrombin Time 17.4 Seconds (9.50-12.1)
[2024-12-09 08:38] LABS: INR 1.7; Prothrombin Time 17.7 Seconds (9.50-12.1)
[2024-12-23 09:03] LABS: INR 2.9; Prothrombin Time 29.1 Seconds (9.50-12.1)
[2025-01-06 08:47] LABS: INR 3.4; Prothrombin Time 33.1 Seconds (9.50-12.1)
== END 2025-01-08 23:59 | disposition home or self-care (01) ==
LOC: CHSLAB 08:10
PROVIDERS: PCP Internal Medicine; Visit Provider Internal Medicine
DX: Z51.81 Encounter for therapeutic drug level monitoring (principal); Z79.01 Long term (current) use of anticoagulants
CPT/HCPCS: 36415; 85610

== ENCOUNTER 2025-04-10 07:51 | Outpatient (RCR) | payer MEDICARE, SELFPAY ==
[2025-01-20 08:36] LABS: INR 3.4; Prothrombin Time 33.5 Seconds (9.50-12.1)
[2025-02-24 07:58] LABS: INR 4.0; Prothrombin Time 38.7 Seconds (9.50-12.1)
[2025-03-10 12:07] LABS: INR 3.3; Prothrombin Time 31.9 Seconds (11.1-14.7)
[2025-04-10 08:54] LABS: INR 4.0; Prothrombin Time 38.7 Seconds (9.50-12.1)
== END 2025-04-20 23:59 | disposition home or self-care (01) ==
LOC: CHSLAB 07:51
PROVIDERS: PCP Internal Medicine; Visit Provider Internal Medicine
DX: Z79.01 Long term (current) use of anticoagulants (principal)
CPT/HCPCS: 36415; 85610

== ENCOUNTER 2025-05-25 07:52 | Outpatient (CLI) | payer MEDICARE, OTHER, SELFPAY ==
--- OUTSIDE RECORDS SUMMARY | 2025-05-25 08:01 | XMS_ITS | Patient Health Record ---
Author Organization [facility] Address [address] [place] [address] Care Team Providers Care Negative Retoucher Name Role Phone Taurus Garg [phone] Allergies Allergen (clinical drug ingredient) Drug/Non Drug Allergy documented on EMR Reaction Allergy Type Onset Date Status CT Dye (uncoded) Unknown Allergy Act cassidy Substance with sulfonamide structure and antibacterial mechanism of action (substance) Sulfa Antibiotics Unknown Drug Allergy Active Reason For Referral No Information Medications Medication SIG (Take, Route, Frequency, Duration) Notes Start Date End Date Status traMADol HCl 50 MG 1 tablet as needed O rally Once a day Active ZyrTEC Allergy 10 MG 1 tablet Orally Once a day Active Singulair 10 MG 1 tablet Orally Once a day Active Magnesium 400 MG as directed Orally Active Protonix 40 MG 1 tablet Orally Once a day Active Pregabalin 150 MG 1 capsule in the geovanny goldie 1 to 3 hours before bedtime Orally Once a day Active Cyclobenzaprine HCl 5 MG 1 tablet at bed time as needed Orally Once a day Active Simvastatin 10 MG 2 tablets in the geovanny goldie Orally Once a day Active FiberCon 625 MG 2 tablets as needed Orally Three times a day Active Coreg 3.125 MG 1 tablet with food O rally Twice a day Active Mirapex ER Active Coumadin Active Aspirin 81 81 MG 1 tablet Orally Once a day Active Probiotic Active CoQ-10 100 MG as directed Orally Active Dymista 137-50 MCG/ACT 1 spray in each n ostril Nasally Twice a day Active Social History Tobacco Use: Social History Observation Description Date Details (start date - stop date) Former Smoker NA - NA Tobacco Use/Smoking Question Answer Notes Are you a former smoker Problems Problem Type SNOMED Code ICD Code Onset Dates Problem Status W/U Status Risk Notes Problem Degenerative disc disease (78794361) DDD (degenerative disc disease), lumbar (M51.36) Active confirmed Problem Lumbosacral spondylosis with radiculopathy (202338892) Lumbosacral spondylosis with radiculopathy (M47.27) Active confirmed Problem Lumbosacral radiculopathy (5922540) Lumbosacral radiculopathy (M54.17) Active confirmed Plan Of Treatment No Information Medications Administered Medication Instructions Date of Administration Dosage Notes Midline (Interlaminar) HOLLIE L4/5 03/06/2024 Medical (General) History Medical History History ICD Code CAD Aortic Valve Replacement (mechanical) 20 17 GERD/ Diverticulosis Urinary Incontinence Surgical History Surgery Date(Month/Year) right kneescope ex lap laparoscopy & Lysis off adhesions 2x Left shoulder scope Aortic valve replacement Right eye cataract surgery left eye cataract surgery
--- OUTSIDE RECORDS SUMMARY | 2025-05-25 08:01 | XMS_ITS | Clinical Summary ---
Author Organization [facility] Building [facility] Address [address] [place] [address] Care Team Providers Care Post Tronic Machine Operator Name Role Phone Aristeo Jeronimo MD Primary Care Provider [phone] Allergies Active Allergy Reactions Criticality Noted Date Comments Iodinated Contrast Media Hives,Itching Medium 08/04/20 24 Sulfa (Sulfonamide Antibiotics) Hives,Itching Medium 1 10/05/2023 Medications amoxicillin 500 mg capsule Take 1 tablet/capsule (500 mg total) by mouth as needed 4 Active aspirin 81 mg enteric coated tablet Take 1 tablet (81 mg total) by mouth daily Active Dymista 137-50 mcg/spray spray,non-aeros ol Administer into affected nostril(s) every 12 hours 8 Active polycarbophil (FiberCon) 625 mg tablet Take 1 tablet (625 mg total) by mouth every 8 hours Takes 4 tablet daily Active carvediloL (COREG) 3.125 mg tablet 1 tablet (3.125 mg total) 2 (two) times a day with meals 7 Active cetirizine (ZyrTEC) 10 mg tablet Take 1 tablet (10 mg total) by mouth daily Active estradioL (ESTRACE) 0.01 % (0.1 mg/gram) vaginal cream Insert 2 g into the vagina daily as needed 2 Active HYDROcodone-joanie taminophen (NORCO) 5-325 mg per tablet Take 1 tablet by mouth every 6 (six) hours as needed 4 Active L. acidophilus/Bif id. animalis 32 billion cell capsule Take 1 capsule by mouth daily Active magnesium oxide 400 mg magnesium capsule Take 400 mg by mouth daily Active montelukast (SINGULAIR) 10 mg tablet Take 1 tablet (10 mg total) by mouth daily Active pantoprazole DR (PROTONIX) 40 mg EC tablet Take 1 tablet (40 mg total) by mouth daily Active pramipexole (MIRAPEX) 0.5 mg tablet Take 1 tablet (0.5 mg total) by mouth daily Active simvastatin (ZOCOR) 10 mg tablet Take 1 tablet (10 mg total) by mouth nightly Active traMADoL (ULTRAM) 50 mg tablet Take 1 tablet (50 mg total) by mouth as needed 4 Active coenzyme Q10 100 mg capsule Take 1 capsule (100 mg total) by mouth daily Active warfarin (COUMADIN) 6 mg tablet Take 6.5 mg by mouth daily 6 mg M, W, F 6.5 mg T, TH, S, S 9 Active pregabalin (LYRICA) 200 mg capsule Take 1 capsule (200 mg total) by mouth 2 (two) times a day 180 capsule 1 4 Active cyclobenzaprine (FLEXERIL) 5 mg tablet Take 1 tablet (5 mg total) by mouth daily Active Lactobacill 46-B.animal-inu kendrick (Probiotic-10, with inulin,) 10 billion cell -100 mg capsule Acti ve Active Problems Problem Noted Date Diagnosed Date Idiopathic peripheral neuropathy 08/04/2024 Social History Tobacco Use Types Packs/Day Years Used Date Smoking Tobacco: Never Assessed Comments Unknown Sex and Gender Information Value Date Recorded Sex Assigned at Not on file Legal Sex Female 9:24 AM CDT Gender Identity Female 07/26/2024 5:17 AM SENIOR TAX ACCOUNTANT Sexual Orientation Straight 07/26/2024 5: 17 AM SENIOR TAX ACCOUNTANT Last Filed Vital Signs Vital Sign Reading Time Taken Comments Blood Pressure 123/72 02/03/2025 1:48 PM CDT Pulse 68 02/03/2025 1:48 PM CDT Temperature 35.9 C (96.7 F) 02/03/2025 1:48 PM CDT Respiratory Rate - - Oxygen Saturation 96% 02/03/2025 1:48 PM CDT Inhaled Oxygen Concentration - - Weight 77.7 kg (171 lb 4.8 oz) 02/03/2025 1:48 P M CDT Height 170.2 cm (5' 7) 02/03/2025 1:48 PM CDT Body Mass Index 26.83 02/03/2025 1:48 PM CDT Plan of Treatment Health Maintenance Due Date Last Done Comments Breast Cancer Screening-Mammogram 1960 Colon Cancer Screening-Colonoscopy 1960 Depression Screening 1958 Fall Risk Assessment 1960 Hepatitis C Screening 1960 Osteoporosis Screening-Bone Density Scan 1960 Well Visit 65+ 12/12/2023 Covid-19 Vaccine (3 - 2024-2 6 season) 2025 12/01/2020, 11/03/2020 Influenza Vaccine (#1) 2025 , 05/16/2021, 06/03/2020, Additional history exists DTaP/Tdap/Td Vaccine (4 - Td or Tdap) 12/26/2032 12/26/2022, 04/20/2017, 01/16/2007 Hepatitis B Screening Completed 04/10/1990 , 09/28/1989, 08/28/1989 Zoster Vaccine Completed 08/26/2021, 05/16/2021 Pneumococcal vaccine 65+ Completed 12/15/2022 Insurance CLAIMS MEDICARE [facility] Address: [address] [address] [place] [address] [employer] Care Teams Post Tronic Machine Operator Relationship Specialty Start Date End Date Aristeo Jeronimo MD PCP - General Internal Medicine 04/23/24
[2025-05-25 08:17] LABS: Add Urine Microscopic? YES; Appearance Urine Sl Cloudy (Clear); Glucose Urine UA Negative (Negative); Hematocrit 35.9 % (35.0-42.0); Hemoglobin 11.6 g/dL (11.7-13.8); Immature Granulocyte Percent A 0.8 % (0.0-0.0); Leukocyte Esterase Ur Negative (Negative); Lymphocytes Absolute Auto 1.91 K/mm3 (1.10-4.50); Mean Corpuscular HGB Conc 32.3 g/dL (32-36); Mean Corpuscular Hemoglobin 28.9 pg (27.0-31.0); Mean Corpuscular Volume 89.3 fL (78.0-102.0); Nitrate Urine Negative (Negative); Nucleated Red Blood Cells Absolute Auto 0.00 K/mm3 (0.00-0.00); Nucleated Red Blood Cells Perc 0.0 % (0-0.0); Platelet Count Result 232 K/mm3 (150-420); Red Blood Count 4.02 M/mm3 (4.20-5.40); Specific Grav Ur 1.015 (1.010-1.020); White Blood Count 6.2 K/mm3 (4.8-10.8)
[2025-05-25 08:29] LABS: Hemoglobin A1C 5.5 % (<5.7)
[2025-05-25 08:36] LABS: INR 2.0; Prothrombin Time 21.0 Seconds (9.50-12.1)
[2025-05-25 08:48] LABS: Alanine Aminotransferase 16 U/L (6-35); Albumin Level 4.4 g/dL (3.5-5.1); Alkaline Phosphatase 71 U/L (38-126); Anion Gap 9 mmol/L (4-12); Aspartate Amino Transferase 28 U/L (14-36); Bilirubin,Total 0.8 mg/dL (0.2-1.3); Blood Urea Nitrogen 16 mg/dL (7-17); CRP 0.8 mg/dL (<1.0); Calcium 9.5 mg/dL (8.4-10.2); Carbon Dioxide 25 mmol/L (22-30); Chloride 106 mmol/L (98-107); Cholesterol 171 mg/dL (0-200); Estimated Glomerular Filt Rate > 60; Glucose 108 mg/dL (65-110); HDL Direct 42 mg/dL; Osmolality Calculated 292 mOsm/kg (285-295); Potassium 5.2 mmol/L (3.4-5.0); Sodium 140 mmol/L (137-145); Total Protein 9.4 g/dL (6.3-8.2); Triglycerides 255 mg/dL (<150)
[2025-05-25 09:15] LABS: Thyroid Stimulating Hormone 5.060 uIU/mL (0.465-4.680)
== END 2025-05-25 07:53 | disposition home or self-care (01) ==
PROVIDERS: PCP Internal Medicine; Visit Provider Internal Medicine
DX: I10 Essential (primary) hypertension (principal); E78.5 Hyperlipidemia, unspecified; R73.03 Prediabetes; M79.606 Pain in leg, unspecified
CPT/HCPCS: 36415; 80053; 80061; 81001; 83036; 84443; 85025; 85610; 86140

== ENCOUNTER 2025-05-29 08:54 | Outpatient (CLI) | payer MEDICARE, SELFPAY ==
[2025-05-29 09:26] LABS: INR 3.3; Prothrombin Time 32.1 Seconds (9.50-12.1)
[2025-05-29 09:31] LABS: Alanine Aminotransferase 16 U/L (6-35); Albumin Level 4.2 g/dL (3.5-5.1); Alkaline Phosphatase 87 U/L (38-126); Anion Gap 6 mmol/L (4-12); Aspartate Amino Transferase 23 U/L (14-36); Bilirubin,Total 0.5 mg/dL (0.2-1.3); Blood Urea Nitrogen 16 mg/dL (7-17); Calcium 9.4 mg/dL (8.4-10.2); Carbon Dioxide 27 mmol/L (22-30); Chloride 108 mmol/L (98-107); Estimated Glomerular Filt Rate > 60; Glucose 114 mg/dL (65-110); Osmolality Calculated 294 mOsm/kg (285-295); Potassium 4.8 mmol/L (3.4-5.0); Sodium 141 mmol/L (137-145); Total Protein 8.8 g/dL (6.3-8.2)
== END 2025-05-29 08:55 | disposition home or self-care (01) ==
LOC: CHSLAB 08:58
PROVIDERS: PCP Internal Medicine; Visit Provider Internal Medicine
DX: E87.5 Hyperkalemia (principal); Z79.01 Long term (current) use of anticoagulants
CPT/HCPCS: 36415; 80053; 85610

== ENCOUNTER 2025-07-20 07:42 | Outpatient (RCR) | payer MEDICARE, OTHER, SELFPAY ==
[2025-04-24 08:36] LABS: INR 3.4; Prothrombin Time 33.8 Seconds (9.50-12.1)
[2025-06-29 08:27] LABS: Prothrombin Time 52.6 Seconds (9.50-12.1)
[2025-06-29 08:39] LABS: INR 5.6
[2025-07-13 08:18] LABS: INR 1.3; Prothrombin Time 13.9 Seconds (9.50-12.1)
[2025-07-17 08:24] LABS: INR 1.8; Prothrombin Time 18.8 Seconds (9.50-12.1)
[2025-07-20 08:24] LABS: Prothrombin Time 26.3 Seconds (9.64-11.0)
[2025-07-20 08:25] LABS: INR 2.6
== END 2025-07-23 23:59 | disposition home or self-care (01) ==
LOC: CHSLAB 07:42
PROVIDERS: PCP Internal Medicine; Visit Provider Internal Medicine
DX: Z79.01 Long term (current) use of anticoagulants (principal)
CPT/HCPCS: 36415; 85610

== ENCOUNTER 2025-08-07 12:32 | Outpatient (CLI) | payer MEDICARE, OTHER, SELFPAY ==
--- NOTE | ~2025-08-07 | XR_ITS ---
XR lumbar spine 2-3V Indication: low back pain s/p fall 2 days ago Comparison: None Findings: Moderate loss of vertebral height throughout. Mild levoconvex scoliosis. No acute fracture or subluxation. Severe loss of disc height at L2-3, L3-4. Soft tissues unremarkable Impression: No acute abnormality. Reviewed, dictated and finalized at location P. IN WORKER Impression: No acute abnormality.
== END 2025-08-07 12:33 | disposition home or self-care (01) ==
LOC: GOSHIMG 12:32
PROVIDERS: PCP Chiropractor; Visit Provider Chiropractor
DX: M54.51 Vertebrogenic low back pain (principal); M53.3 Sacrococcygeal disorders, not elsewhere classified; M99.05 Segmental and somatic dysfunction of pelvic region; M99.04 Segmental and somatic dysfunction of sacral region
CPT/HCPCS: 72100